=== PATIENT | male | born 1950 | race Caucasian/White ===

== ENCOUNTER 2020-08-13 10:41 | Emergency (ER) | payer MEDICARE, BC ==
[2020-08-13 10:49] VITALS: BP 112/70; PULSE 67; RESP 18; TEMP 97.8
[2020-08-13] MEDS ORDERED: DIPH,PERTUS(ACELL)TETVAC-LF 0.5 ML VIAL IM ONE (11:11)
--- NOTE | 2020-08-13 11:31 | XR ---
EXAMINATION TYPE: XR finger RT DATE OF EXAM: 08/13/2020 COMPARISON: NONE HISTORY: Puncture wound with pain TECHNIQUE: Three views are submitted. FINDINGS: The osseous structures are intact. Hypertrophic arthropathy of the DIP joint. There is a linear densi ty seen along the palmar surface adjacent to the distal phalanx is too small to characterize. As note d on the lateral view.. Soft tissue edema noted. Are preserved and there is no acute fracture or disl ocation. IMPRESSION: 1. Soft tissue edema. There is a vague linear 1 mm density along the ulnar surface of the tip of the phalanx which is indeterminate. Correlate clinically.
--- NOTE | 2020-08-13 11:32 | XR ---
EXAMINATION TYPE: XR foot complete LT DATE OF EXAM: 08/13/2020 COMPARISON: NONE HISTORY: Pain TECHNIQUE: Three views are submitted. FINDINGS: The osseous structures are intact. There is no acute fracture or dislocation. Hypertrophic arthrop athy first MTP. Arthropathy of the DIP joints of the second through fifth digits. Hammertoe deformiti es noted. Calcaneal spurs are seen.. IMPRESSION: 1. No acute fracture or dislocation. If symptoms persist, follow-up exam in 7 to 10 days could be ob tained.
--- NOTE | 2020-08-13 11:57 | ED ---
Skin/Abscess/FB HPI - General Chief complaint: Skin/Abscess/Foreign Body Stated complaint: Extremity Issues Time Seen by Provider: 08/13/20 10:50 Source: patient, family, RN notes reviewed Mode of arrival: wheelchair Limitations: no limitations - History of Present Illness Initial comments: This a 69-year-old male presents emergency Department chief complaint of right hand first and second digit pain, swelling, left foot pain. Patient states she spoke to her finger proximal week ago with be some metal states it was worse at that time. His tetanus is not up-to-date. Patient states that he has become more swollen, painful. No fevers or chills. Patient has no pain past his finger. Patient also states for 5 days ago he stepped on nail through the shoe on his left foot. Patient states it's still painful no redness no fevers chills denies being diabetic. - Related Data Home Medications Medication Instructions Recorded Confirmed Aspirin 81 mg PO DAILY 08/13/20 08/13/20 Atenolol [Tenormin] 100 mg PO DAILY 08/13/20 08/13/20 Atorvastatin [Lipitor] 40 mg PO DAILY 08/13/20 08/13/20 Benazepril HCl 20 mg PO DAILY 08/13/20 08/13/20 amLODIPine [Norvasc] 10 mg PO DAILY 08/13/20 08/13/20 Previous Rx's Medication Instructions Recorded Levofloxacin [Levaquin] 500 mg PO DAILY #10 tab 08/13/20 Allergies Allergy/AdvReac Type Severity Reaction Status Date / Time No Known Allergies Allergy Verified 08/13/20 11:47 Review of Systems ROS Statement: Those systems with pertinent positive or pertinent negative responses have been documented in the HPI. ROS Other: All systems not noted in ROS Statement are negative. Past Medical History Past Medical History: No Reported History History of Any Multi-Drug Resistant Organisms: None Reported Past Surgical History: No Surgical Hx Reported Past Psychological History: No Psychological Hx Reported Smoking Status: Never smoker Past Alcohol Use History: Occasional Past Drug Use History: None Reported General Exam Limitations: no limitations General appearance: alert, in no apparent distress Head exam: Present: atraumatic, normocephalic, normal inspection Respiratory exam: Present: normal lung sounds bilaterally. Absent: respiratory distress, wheezes, rales, rhonchi, stridor Cardiovascular Exam: Present: regular rate, normal rhythm, normal heart sounds. Absent: systolic murmur, diastolic murmur, rubs, gallop, clicks Course Vital Signs 08/13/20 10:42 Temperature 97.8 F Pulse Rate 67 Respiratory 18 Rate Blood Pressure 112/70 O2 Sat by Pulse 98 Oximetry Medical Decision Making - Medical Decision Making Patient has questionable foreign body an x-ray of his finger. X-ray of the foot is unremarkable. Patient we placed on Levaquin with close follow-up with orthopedics. Tetanus was updated Disposition Clinical Impression: Cellulitis of finger, right, Puncture wound of foot Disposition: HOME SELF-CARE Condition: Stable Instructions (If sedation given, give patient instructions): Cellulitis (ED) Additional Instructions: Please return to the Emergency Department if symptoms worsen or any other concerns. Prescriptions: Levofloxacin [Levaquin] 500 mg PO DAILY #10 tab Is patient prescribed a controlled substance at d/c from ED?: No Referrals: Maury Sterling MD [Primary Care Provider] - 1-2 days Noel Garcia MD [STAFF PHYSICIAN] - 1-2 days Time of Disposition: 11:57
[2020-08-13] MEDS ORDERED: cefTRIAXone 1,000 MG VIAL (IM USE) IM STA (12:02)
== END 2020-08-13 12:17 | disposition home or self-care (01) ==
LOC: EC 10:41
DX: S91.332A Puncture wound without foreign body, left foot, initial encounter (principal); L03.011 Cellulitis of right finger; Z79.82 Long term (current) use of aspirin; Z79.899 Other long term (current) drug therapy; W45.0XXA Nail entering through skin, initial encounter
CPT/HCPCS: 73140; 73630; 90715; 99283; 96372; 90471; J0696

== ENCOUNTER → 2020-10-02 | Outpatient (CLI) | payer MEDICARE, BC ==
--- NOTE | 2020-10-06 14:35 | MR ---
EXAMINATION TYPE: MR Prostate wo/w con DATE OF EXAM: 10/02/2020 COMPARISON: None. INDICATION: Increased PSA PSA: 6.4 ng/ml on September 08, 2019 at 8.32 on August 06, 2020. Recent Biopsy and Date: NONE Pathology Report (If Applicable): TECHNIQUE: Examination was performed using a 3T MRI without an endorectal coil. Multiparametric imaging was perf ormed with T2 mutliplanar sequences, axial diffusion weighted imaging and dynamic contrast enhanced i maging, utilizing 7.5 mL intravenous Gadavist gadolinium contrast. FINDINGS: There is no clinically significant cancer identified. PROSTATE VOLUME: 6.1 cm SI x 4.2 cm AP x 5.3 cm LR Vol= 71.1 cc Predicted PSA = 8.53 PSA DENSITY: 0.09 ng/ml/cc Enlarged prostate with transitional zone hypertrophy. Peripheral zone is markedly thinned with areas of indistinct hypointensity particularly mid zone greater right of midline identified. No areas of mi ld to moderate hypointensity and ADC mapping or increased signal Diffusion-weighted imaging identified. Transitional zone hypertrophy and heterogeneity with areas of heterogeneous hypointense signal and ob scured margins throughout the left aspect involving basilar mid and apical segments. No restricted di ffusion is evident. Seminal vesicles are both within normal limits. Mild to moderate distention of bladder with mild wall thickening and mild to borderline moderate trabeculation. Visualized osseous structures are intact. No pelvic fluid collection or adenopathy. Prostate capsule is intact. Small bilateral fat-containing inguinal hernias. IMPRESSION: Enlarged prostate. Somewhat equivocal findings left prostate. Consider sampling given ris ing PSA. Highest Assessment Category: 3 MRI Stage: T0 N0 M0 based on review of pelvic images. False negative rates for MRI range from 5-20% depending on risk profile. Assessment Categories: 1 ? Very low (clinically significant cancer is highly unlikely to be present) 2 ? Low (clinically significant cancer is unlikely to be present) 3 ? Intermediate (the presence of clinically significant cancer is equivocal) 4 ? High (clinically significant cancer is likely to be present) 5 ? Very high (clinically significant cancer is highly likely to be present)
== END | disposition home or self-care (01) ==
LOC: RADMRIMAIN 10:09
PROVIDERS: ATTEND Urology
DX: N40.0 Benign prostatic hyperplasia without lower urinary tract symptoms (principal)
CPT/HCPCS: 72197; A9585

== ENCOUNTER → 2021-05-17 | Outpatient (CLI) | payer MEDICARE, BC | END | disposition home or self-care (01) | LOC: LABWHC1 12:11 | PROVIDERS: ATTEND Urology | DX: C61 Malignant neoplasm of prostate (principal) | CPT/HCPCS: 36415; 84153 ==

== ENCOUNTER → 2021-11-14 | Outpatient (CLI) | payer MEDICARE, BC | END | disposition home or self-care (01) | LOC: LABWHC1 16:13 | PROVIDERS: ATTEND Urology | DX: C61 Malignant neoplasm of prostate (principal) | CPT/HCPCS: 36415; 84153 ==

== ENCOUNTER → 2021-12-23 | Outpatient (CLI) | payer MEDICARE, BC ==
--- NOTE | 2021-12-26 07:21 | MR ---
EXAMINATION TYPE: MR Prostate wo/w con DATE OF EXAM: 12/23/2021 8:41 AM COMPARISON: None. CLINICAL INDICATION:Male, 71 years old with history of C61 prostate ca; TECHNIQUE: Multi-planar, multi-sequence imaging of the pelvis is performed prior to and following the uncomplicated administration of bolus intravenous gadolinium. CONTRAST: 8 Gadavist Interpretive Criteria: PI-RADS v2.1 SERUM PSA: 8.4 on 11/14/2021. 7.9 on 05/17/2021 SURGICAL PATHOLOGY: Prostate malignancy involving the right lateral apex and left lateral base. Aleks 6. FINDINGS: Prostatic dimensions: 5.8 x 5.9 x 4.6. cm. 82.42 (PSA density=0.10 ng/mL/mL) CENTRAL GLAND (Central and Transition Zones/CZ+TZ): Multiple bilateral, heterogenous appearing hypertrophic stromal nodules, without suspicious lesion. M edian lobe hypertrophy with protrusion into the base of the bladder. Subtle areas of intrinsic high T1 signal are seen most pronounced in the right central zone likely sequela of prior hemorrhage/biops y versus prostatitis (PI-RADS 2) PERIPHERAL ZONE (PZ): Bilateral linear, indistinct areas of low ADC, and low T2 signal, No evidence of masslike abnormality , or localized perfusional hypervascularity, to further suggest a focus of clinically significant pro state cancer. There are 2 extruded BPH nodules seen from the central gland to the peripheral zone inc luding on the right and left lateral aspect. (PI-RADS 2) SEMINAL VESICLES (SV): Symmetric and slightly decompressed. PERIPROSTATIC TISSUES: Unremarkable. LYMPH NODES: No enlarged pelvic lymph node. REMAINING PELVIS: Circumferential bladder wall thickening with trabeculations likely secondary to chronic bladder outfl ow obstruction. No abnormal free or organized intrapelvic fluid collection. No pathologic bowel dilation or mural thickening. Right hydrocele partially visualized. OSSEOUS STRUCTURES: No suspicious osseous abnormality. IMPRESSION: 1. No specific features for high-risk prostate cancer. There are numerous circumscribed transition zo ne nodules and low-risk peripheral zone abnormalities (PI-RADS 2). 2. Substantial BPH, estimated gland volume 82 mL. 3. No suspicious osseous lesion. No lymphadenopathy. No evidence of prostate adenocarcinoma involving the periprostatic tissues.
== END | disposition home or self-care (01) ==
LOC: RADMRIMAIN 07:43
PROVIDERS: ATTEND Urology
DX: C61 Malignant neoplasm of prostate (principal); N40.0 Benign prostatic hyperplasia without lower urinary tract symptoms
CPT/HCPCS: 72197; A9585

== ENCOUNTER 2022-03-27 13:17 | Emergency (ER) | payer MEDICARE, BC ==
[2022-03-27 13:24] VITALS: BP 136/77; PULSE 60; RESP 20; TEMP 98.3
--- NOTE | 2022-03-27 15:57 | ED ---
ENT HPI - General Chief complaint: ENT Stated complaint: bloody nose Time Seen by Provider: 03/27/22 15:05 Source: patient Mode of arrival: ambulatory Limitations: no limitations - History of Present Illness Initial comments: Patient is a 71-year-old male presenting with chief complaint of epistaxis. Patient states that the nosebleed started today. It was intermittent for several hours. By the time I obtained history, patient states that the bleeding had subsided for the last hour and a half. Bleeding was coming from the left nostril. Patient denies any injury or trauma. No headache, vision or hearing changes, fever, chills, neck pain or stiffness. Patient has history of nosebleeds, but has not had one in a long time. - Related Data Home Medications Medication Instructions Recorded Confirmed Aspirin 81 mg PO DAILY 08/13/20 08/13/20 Atorvastatin [Lipitor] 40 mg PO DAILY 08/13/20 08/13/20 Benazepril HCl 20 mg PO DAILY 08/13/20 08/13/20 amLODIPine [Norvasc] 10 mg PO DAILY 08/13/20 08/13/20 atenoloL [Tenormin] 100 mg PO DAILY 08/13/20 08/13/20 Previous Rx's Medication Instructions Recorded Levofloxacin [Levaquin] 500 mg PO DAILY #10 tab 08/13/20 Allergies Allergy/AdvReac Type Severity Reaction Status Date / Time No Known Allergies Allergy Verified 03/27/22 13:25 Review of Systems ROS Statement: Those systems with pertinent positive or pertinent negative responses have been documented in the HPI. ROS Other: All systems not noted in ROS Statement are negative. Past Medical History Past Medical History: Hypertension History of Any Multi-Drug Resistant Organisms: None Reported Past Surgical History: No Surgical Hx Reported Past Psychological History: No Psychological Hx Reported Smoking Status: Never smoker Past Alcohol Use History: Occasional Past Drug Use History: None Reported General Exam Limitations: no limitations General appearance: alert, in no apparent distress Head exam: Present: atraumatic, normocephalic, normal inspection Eye exam: Present: normal appearance ENT exam: Present: other (Scabbing of the left nasal mucosa, no active bleeding) Neck exam: Present: normal inspection, full ROM Respiratory exam: Present: normal lung sounds bilaterally. Absent: respiratory distress, wheezes, rales, rhonchi, stridor Cardiovascular Exam: Present: regular rate, normal rhythm, normal heart sounds. Absent: systolic murmur, diastolic murmur, rubs, gallop, clicks Neurological exam: Present: alert, oriented X3, CN II-XII intact Psychiatric exam: Present: normal affect, normal mood Skin exam: Present: warm, dry, intact, normal color. Absent: rash Course Vital Signs 03/27/22 13:23 Temperature 98.3 F Pulse Rate 60 Respiratory 20 Rate Blood Pressure 136/77 O2 Sat by Pulse 99 Oximetry Medical Decision Making - Medical Decision Making Was pt. sent in by a medical professional or institution (, PA, DRIVER LICENSE TECHNICIAN, urgent care, hospital, or long term...) When possible be specific @ -No Did you speak to anyone other than the patient for history (EMS, parent, family, police, friend...)? What history was obtained from this source @ -No Did you review nursing and triage notes (agree or disagree)? Why? @ -I reviewed and agree with nursing and triage notes Were old charts reviewed (outside hosp., previous admission, EMS record, old EKG, old radiological studies, urgent care reports/EKG's, long term records)? Report findings @ -No old charts were reviewed Differential Diagnosis (chest pain, altered mental status, abdominal pain women, abdominal pain men, vaginal bleeding, weakness, fever, dyspnea, syncope, headache, dizziness, GI bleed, back pain, seizure, CVA, palpatations, mental health)? @ -not applicable EKG interpreted by me (3pts min.). @ -As above X-rays interpreted by me (1pt min.). @ -None done CT interpreted by me (1pt min.). @ -None done U/S interpreted by me (1pt. min.). @ -None done What testing was considered but not performed or refused? (CT, X-rays, U/S, labs)? Why? @ -None What meds were considered but not given or refused? Why? @ -None Did you discuss the management of the patient with other professionals (professionals i.e. SAI Reid, DRIVER LICENSE TECHNICIAN, lab, RT, psych nurse, social services specialist, tin recovery worker, teacher, seal delivery vehicle officer, outpatient case manager)? Give summary @ -No Was smoking cessation discussed for >3mins.? @ -No Was critical care preformed (if so, how long)? @ -No Were there social determinants of health that impacted care today? How? (Homelessness, low income, unemployed, alcoholism, drug addiction, transportation, low edu. Level, literacy, decrease access to med. care, halfway, rehab)? @ -No Was there de-escalation of care discussed even if they declined (Discuss DNR or withdrawal of care, Hospice)? DNR status @ -No What co-morbidities impacted this encounter? (DM, HTN, Smoking, COPD, CAD, C ancer, CVA, ARF, Chemo, Hep., AIDS, mental health diagnosis, sleep apnea, morbid obesity)? @ -None Was patient admitted / discharged? Hospital course, mention meds given and route, prescriptions, significant lab abnormalities, going to OR and other pertinent info. @ -Patient is a 71 y/o male presenting with CC of epistaxis. Nosebleed started today, has not been active for the last hour and a half. On examination there is scabbing of the left knee are noted, no active bleeding. Patient is educated on supportive treatment, encouraged to use nasal saline spray and humidifier at home to help prevent nosebleeds. Provided with nasal clamp if needed for home. Blood pressure is within acceptable range. Follow-up with PCP. Report back to ER with any new or worsening symptoms. Discussed return parameters and answered all questions. Patient conveyed verbal understanding and agreed to the plan. I discussed this case in detail with my attending Dr. Okeefe Undiagnosed new problem with uncertain prognosis? @ -No Drug Therapy requiring intensive monitoring for toxicity (Heparin, Nitro, Insulin, Cardizem)? @ -No Were any procedures done? @ -No Diagnosis/symptom? @ -epistaxis Acute, or Chronic, or Acute on Chronic? @ -ACUTE Uncomplicated (without systemic symptoms) or Complicated (systemic symptoms)? @ -uncomplicated Side effects of treatment? @ -No Exacerbation, Progression, or Severe Exacerbation? @ -No Poses a threat to life or bodily function? How? (Chest pain, [place], OR, pneumonia, PE, COPD, DKA, ARF, appy, cholecystitis, CVA, Diverticulitis, Homicidal, Suicidal, threat to staff... and all critical care pts) @ -unlikely Disposition Clinical Impression: Nosebleed Disposition: HOME SELF-CARE Condition: Good Instructions (If sedation given, give patient instructions): Nosebleed (ED) Additional Instructions: Follow-up with PCP. Report back to ER with any new or worsening symptoms. Use nasal saline spray to help keep nasal passages moist. Use nasal clamp as needed to help with nosebleeds. Is patient prescribed a controlled substance at d/c from ED?: No Referrals: Maury Sterling MD [Primary Care Provider] - 1-2 days Time of Disposition: 15:57
== END 2022-03-27 16:06 | disposition home or self-care (01) ==
LOC: EC 13:17
DX: R04.0 Epistaxis (principal); I10 Essential (primary) hypertension; Z79.82 Long term (current) use of aspirin
CPT/HCPCS: 99283

== ENCOUNTER → 2022-12-15 | Outpatient (CLI) | payer MEDICARE, BC | END | disposition home or self-care (01) | LOC: LABWHC1 09:32 | PROVIDERS: ATTEND Urology | DX: C61 Malignant neoplasm of prostate (principal) | CPT/HCPCS: 36415; 84153 ==

== ENCOUNTER 2023-04-26 08:29 | Emergency (ER) | payer MEDICARE, BC ==
[2023-04-26] MEDS: OXYMETAZOLINE 0.05% NASL SPRAY 1 SPRAY BOTTLE NASAL STA (08:52)
[2023-04-26 09:21] LABS: Basophils # (A) 0.1 k/uL (0-0.2); Basophils % (A) 1 %; Eosinophils # (A) 0.2 k/uL (0-0.7); Eosinophils % (A) 3 %; HCT 24.5 % (39.0-53.0); HGB 8.2 gm/dL (13.0-17.5); Lymphocytes # (A) 1.4 k/uL (1.0-4.8); Lymphocytes % (A) 19 %; MCH 29.8 pg (25.0-35.0); MCHC 33.5 g/dL (31.0-37.0); MCV 88.7 fL (80.0-100.0); Mean Platelet Volume 8.4; Monocytes # (A) 0.4 k/uL (0-1.0); Monocytes % (A) 5 %; Neutrophils # (A) 5.4 k/uL (1.3-7.7); Neutrophils % (A) 72 %; Platelet Count 255 k/uL (150-450); RBC 2.76 m/uL (4.30-5.90); RDW 14.4 % (11.5-15.5); WBC 7.5 k/uL (3.8-10.6)
[2023-04-26] MEDS: TRANEXAMIC ACID 1,000 MG/10 ML VIAL MISCELLANE ONE (09:22)
[2023-04-26] MEDS: METOCLOPRAMIDE 5 MG/ML 2 ML VIAL IVP STA (09:25)
[2023-04-26 09:30] LABS: INR 0.9 (<1.2); Prothrombin Time 10.2 sec (10.0-12.5)
[2023-04-26 09:42] LABS: ALT 15 U/L (4-49); AST 21 U/L (17-59); African American GFR (CKD) 32 (>60 ml/min/1.73 sqM); Albumin 3.1 g/dL (3.5-5.0); Alkaline Phosphatase 99 U/L (38-126); Anion Gap 7 mmol/L; Blood Urea Nitrogen 33 mg/dL (9-20); Calcium 8.7 mg/dL (8.4-10.2); Carbon Dioxide 24 mmol/L (22-30); Chloride 111 mmol/L (98-107); Glucose 142 mg/dL (74-99); Non-African American GFR(CKD) 28 (>60 ml/min/1.73 sqM); Sodium 142 mmol/L (137-145); Total Bilirubin 0.4 mg/dL (0.2-1.3); Total Protein 6.1 g/dL (6.3-8.2)
--- NOTE | 2023-04-26 09:50 | ED ---
ENT HPI - General Chief complaint: ENT Stated complaint: Nose bleed, lightheaded Time Seen by Provider: 04/26/23 08:39 Source: patient, RN notes reviewed Mode of arrival: wheelchair Limitations: no limitations - History of Present Illness Initial comments: 72-year-old male presents emergency department chief complaint of left nostril epistaxis. He states he has been having nosebleeds for several days. Patient states that he felt lightheaded when she had to lay down today. He denies any chest pain or shortness of breath. Patient states that he has had some nosebleeds in the past but never to this extent. He does use a humidifier at home he is also been using some [place] saline rinses. Patient states he was on aspirin up to a few days ago in which his PCP told him to stop it. - Related Data Home Medications Medication Instructions Recorded Confirmed Aspirin 81 mg PO DAILY 08/13/20 08/13/20 Atorvastatin [Lipitor] 40 mg PO DAILY 08/13/20 08/13/20 Benazepril HCl 20 mg PO DAILY 08/13/20 08/13/20 amLODIPine [Norvasc] 10 mg PO DAILY 08/13/20 08/13/20 atenoloL [Tenormin] 100 mg PO DAILY 08/13/20 08/13/20 Previous Rx's Medication Instructions Recorded Levofloxacin [Levaquin] 500 mg PO DAILY #10 tab 08/13/20 Allergies Allergy/AdvReac Type Severity Reaction Status Date / Time No Known Allergies Allergy Verified 04/26/23 08:38 Review of Systems ROS Statement: Those systems with pertinent positive or pertinent negative responses have been documented in the HPI. ROS Other: All systems not noted in ROS Statement are negative. Past Medical History Past Medical History: Hypertension History of Any Multi-Drug Resistant Organisms: None Reported Past Surgical History: No Surgical Hx Reported Past Psychological History: No Psychological Hx Reported Smoking Status: Never smoker Past Alcohol Use History: Occasional Past Drug Use History: None Reported General Exam Limitations: no limitations General appearance: alert, in no apparent distress Head exam: Present: atraumatic, normocephalic, normal inspection Eye exam: Present: normal appearance, PERRL, EOMI. Absent: scleral icterus, conjunctival injection, periorbital swelling ENT exam: Present: mucous membranes moist, other (Left nostril active bleeding, no obvious site). Absent: normal exam, normal oropharynx (Blood noted in the posterior pharynx), TM's normal bilaterally Neck exam: Present: normal inspection, full ROM. Absent: tenderness, meningismus, lymphadenopathy Respiratory exam: Present: normal lung sounds bilaterally. Absent: respiratory distress, wheezes, rales, rhonchi, stridor Cardiovascular Exam: Present: regular rate, normal rhythm, normal heart sounds. Absent: systolic murmur, diastolic murmur, rubs, gallop, clicks Course Vital Signs 04/26/23 04/26/23 04/26/23 08:36 10:59 11:04 Temperature 97.4 F L 98.5 F 98.1 F Pulse Rate 60 61 78 Respiratory 16 16 18 Rate Blood Pressure 121/67 117/74 117/74 O2 Sat by Pulse 98 100 98 Oximetry Procedures - Procedures Initial comment: Nasal packing procedure: Left nostril Rhino Rocket was used Rhino Rocket was placed with no complications 2 cc of air were placed in each balloon. Medical Decision Making - Medical Decision Making Was pt. sent in by a medical professional or institution (, PA, [employer], urgent care, hospital, or detention...) When possible be specific @ -No Did you speak to anyone other than the patient for history (EMS, parent, family, police, friend...)? What history was obtained from this source @ -No Did you review nursing and triage notes (agree or disagree)? Why? @ -I reviewed and agree with nursing and triage notes Were old charts reviewed (outside hosp., previous admission, EMS record, old EKG, old radiological studies, urgent care reports/EKG's, detention records)? Report findings @ -No old charts were reviewed Differential Diagnosis (chest pain, altered mental status, abdominal pain women, abdominal pain men, vaginal bleeding, weakness, fever, dyspnea, syncope, headache, dizziness, GI bleed, back pain, seizure, CVA, palpatations, mental health, musculoskeletal)? @ -Epistaxis, nasal fracture, sinusitis EKG interpreted by me (3pts min.). @ -[None X-rays interpreted by me (1pt min.). @ -None done CT interpreted by me (1pt min.). @ -None done U/S interpreted by me (1pt. min.). @ -None done What testing was considered but not performed or refused? (CT, X-rays, U/S, labs)? Why? @ -None What meds were considered but not given or refused? Why? @ -None Did you discuss the management of the patient with other professionals (professionals i.e. , PA, [employer], lab, RT, psych nurse, social work instructor, door fitter, teacher, biological technical officer, case maker)? Give summary @ -No Was smoking cessation discussed for >3mins.? @ -No Was critical care preformed (if so, how long)? @ -No Were there social determinants of health that impacted care today? How? (Homelessness, low income, unemployed, alcoholism, drug addiction, transportation, low edu. Level, literacy, decrease access to med. care, retirement, rehab)? @ -No Was there de-escalation of care discussed even if they declined (Discuss DNR or withdrawal of care, Hospice)? DNR status @ -No What co-morbidities impacted this encounter? (DM, HTN, Smoking, COPD, CAD, Cancer, CVA, ARF, Chemo, Hep., AIDS, mental health diagnosis, sleep apnea, morbid obesity)? @ -None Was patient admitted / discharged? Hospital course, mention meds given and route, prescriptions, significant lab abnormalities, going to OR and other pertinent info. @ -[Discharge patient presented for epistaxis. Patient initially had Afrin spray, TXA with no relief. Nasal packing with Rhino Rocket was performed. Patient tolerated well patient will follow-up with ENT. Return pressure d iscussed. I did receive laboratory studies from PCP patient did have mild anemia from baseline patient states he is not symptomatic currently. He was offered admission patient declined admission he will have recheck of his hemoglobin. Patient has chronic kidney disease in which he has been referred to nephrology Undiagnosed new problem with uncertain prognosis? @ -No Drug Therapy requiring intensive monitoring for toxicity (Heparin, Nitro, Insulin, Cardizem)? @ -No Were any procedures done? @ -No Diagnosis/symptom? @ -Epistaxis Acute, or Chronic, or Acute on Chronic? @ -Acute Uncomplicated (without systemic symptoms) or Complicated (systemic symptoms)? @ -Uncomplicated Side effects of treatment? @ -No Exacerbation, Progression, or Severe Exacerbation? @ -No Poses a threat to life or bodily function? How? (Chest pain, USA, LA, pneumonia, PE, COPD, DKA, ARF, appy, cholecystitis, CVA, Diverticulitis, Homicidal, Suicidal, threat to staff... and all critical care pts) @ -No - Lab Data Result diagrams: 04/26/23 09:07 04/26/23 09:07 Lab Results 04/26/23 04/26/23 04/26/23 Range/Units 09:07 09:07 09:07 WBC 7.5 (3.8-10.6) k/uL RBC 2.76 L (4.30-5.90) m/uL Hgb 8.2 L (13.0-17.5) gm/dL Hct 24.5 L (39.0-53.0) % MCV 88.7 (80.0-100.0) fL MCH 29.8 (25.0-35.0) pg MCHC 33.5 (31.0-37.0) g/dL RDW 14.4 (11.5-15.5) % Plt Count 255 (150-450) k/uL MPV 8.4 Neutrophils % 72 % Lymphocytes % 19 % Monocytes % 5 % Eosinophils % 3 % Basophils % 1 % Neutrophils # 5.4 (1.3-7.7) k/uL Lymphocytes # 1.4 (1.0-4.8) k/uL Monocytes # 0.4 (0-1.0) k/uL Eosinophils # 0.2 (0-0.7) k/uL Basophils # 0.1 (0-0.2) k/uL PT 10.2 (10.0-12.5) sec INR 0.9 (<1.2) APTT 21.0 L (22.0-30.0) sec Sodium 142 (137-145) mmol/L Potassium 4.0 (3.5-5.1) mmol/L Chloride 111 H (98-107) mmol/L Carbon Dioxide 24 (22-30) mmol/L Anion Gap 7 mmol/L BUN 33 H (9-20) mg/dL Creatinine 2.29 H (0.66-1.25) mg/dL Est GFR (CKD-EPI)AfAm 32 (>60 ml/min/1.73 sqM) Est GFR (CKD-EPI)NonAf 28 (>60 ml/min/1.73 sqM) Glucose 142 H (74-99) mg/dL Calcium 8.7 (8.4-10.2) mg/dL Total Bilirubin 0.4 (0.2-1.3) mg/dL AST 21 (17-59) U/L ALT 15 (4-49) U/L Alkaline Phosphatase 99 (38-126) U/L Total Protein 6.1 L (6.3-8.2) g/dL Albumin 3.1 L (3.5-5.0) g/dL Disposition Clinical Impression: Epistaxis, CKD (chronic kidney disease), Anemia Disposition: HOME SELF-CARE Condition: Stable Instructions (If sedation given, give patient instructions): Nosebleed (ED) Additional Instructions: Please return to the Emergency Department if symptoms worsen or any other con cerns. Is patient prescribed a controlled substance at d/c from ED?: No Referrals: Zac Sterling MD [STAFF PHYSICIAN] - 1-2 days Samson Ventura MD [STAFF PHYSICIAN] - 1-2 days Time of Disposition: 10:58
[2023-04-26 11:08] VITALS: BP 117/74; PULSE 78; RESP 18; TEMP 98.1
== END 2023-04-26 11:18 | disposition home or self-care (01) ==
LOC: EC 08:29
DX: D63.1 Anemia in chronic kidney disease (principal); R04.0 Epistaxis; I12.9 Hypertensive chronic kidney disease with stage 1 through stage 4 chronic kidney disease, or unspecified chronic kidney disease; N18.9 Chronic kidney disease, unspecified; Z79.82 Long term (current) use of aspirin; Z79.899 Other long term (current) drug therapy
CPT/HCPCS: 99284; 96374; 30901; 36415; 80053; 85025; 85610; 85730; J2765

== ENCOUNTER → 2023-07-09 | Outpatient (CLI) | payer MEDICARE, BC | END | disposition home or self-care (01) | LOC: LABWHC1 15:56 | PROVIDERS: ATTEND Urology | DX: C61 Malignant neoplasm of prostate (principal) | CPT/HCPCS: 36415; 84153 ==

== ENCOUNTER → 2023-12-18 | Outpatient (CLI) | payer MEDICARE, BC ==
[2023-12-18 18:43] LABS: Basophils # (A) 0.06 X 10*3/uL (0.00-0.10); Basophils % (A) 0.7 %; Eosinophils # (A) 0.34 X 10*3/uL (0.04-0.35); Eosinophils % (A) 3.7 %; HCT 40.6 % (39.6-50.0); HGB 13.7 g/dL (13.0-17.0); Lymphocytes # (A) 2.52 X 10*3/uL (0.90-5.00); Lymphocytes % (A) 27.6 %; MCH 30.8 pg (27.0-32.0); MCHC 33.7 g/dL (32.0-37.0); MCV 91.2 FL (80.0-97.0); Mean Platelet Volume 10.3 FL (9.5-12.2); Monocytes # (A) 1.08 X 10*3/uL (0.20-1.00); Monocytes % (A) 11.8 %; NRBC Per 100 WBC 0 X 10*3/uL (0.00-0.01); Neutrophils # (A) 5.08 X 10*3/uL (1.80-7.70); Neutrophils % (A) 55.5 %; Platelet Count 237 X 10*3/uL (140-440); RBC 4.45 X 10*6/uL (4.40-5.60); RDW 12.9 % (11.5-14.5); WBC 9.14 X 10*3/uL (4.50-10.00)
[2023-12-18 18:54] LABS: BUN/Creat Ratio 16.27 Ratio (12.00-20.00); Blood Urea Nitrogen 35.8 mg/dL (9.0-27.0); Calcium 9.5 mg/dL (8.7-10.3); Carbon Dioxide 25.1 mmol/L (21.6-31.8); Chloride 106 mmol/L (96-109); Glucose 91 mg/dL (70-110); Potassium 4.7 mmol/L (3.5-5.5); Sodium 143 mmol/L (135-145)
[2023-12-18 19:43] LABS: Appearance,Urine Clear (Clear); Bilirubin,Urine Negative (Negative); Blood,Urine Small (Negative); Color,Urine Yellow (Yellow); Ketones,Urine Negative (Negative); Nitrite,Urine Negative (Negative); Specific Gravity,Urine 1.016 (1.001-1.030); Urobilinogen,Urine 0.2 E.U./DL
[2023-12-18 19:54] LABS: Bacteria,Urine None Seen (None Seen)
== END | disposition home or self-care (01) ==
LOC: LABPAT 15:03
PROVIDERS: ATTEND Urology
CPT/HCPCS: 36415; 80048; 81001; 85025; 86850; 86900; 86901; 87086; 93005

== ENCOUNTER 2023-12-28 07:32 | Day surgery (SDC) | payer MEDICARE, BC ==
--- NOTE | 2023-12-25 14:12 | P.HPIHPCON ---
History of Present Illness H&P Date: 12/25/23 Chief Complaint: prostate cancer This is a 73-year-old male with history of Martin 7 prostate cancer, option of radiation therapy versus prostatectomy versus continued surveillance was discussed with him in detail. He agreed to proceed with a robotic radical prostatectomy. Patient also has inguinal hernia and plan to repair an inguinal hernia at the same time as the prostatectomy by Dr. Shane. Discussed with him with prostatectomy the risk of bleeding, infection, urinary incontinence, erectile dysfunction. Discussed also risk of injury to nearby organs which includes but not limited to the rectum, bowel, bladder. Risk of cancer recurrence, potential of need of additional treatments and the need for postoperative surveillance was also discussed. He understood all the risk and agreed to proceed Consent for Procedure: I have explained the operation/procedure to the patient, including the risks, benefits, side effects, alternative therapies (including not receiving the proposed treatment or service), the likelihood of the patient achieving his/her goals, and potential recuperation problems for the procedure/sedation/analgesia, as well as any blood products, if indicated. I also explained to the patient the risks, benefits and side effects of the alternatives, as well as the risks related to not receiving the proposed procedure, care, treatment, or services. Past Medical History Past Medical History: Hypertension History of Any Multi-Drug Resistant Organisms: None Reported Past Surgical History: No Surgical Hx Reported Past Psychological History: No Psychological Hx Reported Smoking Status: Never smoker Past Alcohol Use History: Occasional Past Drug Use History: None Reported Medications and Allergies Home Medications Medication Instructions Recorded Confirmed Type Aspirin 81 mg PO DAILY 08/13/20 08/13/20 History Atorvastatin [Lipitor] 40 mg PO DAILY 08/13/20 08/13/20 History Benazepril HCl 20 mg PO DAILY 08/13/20 08/13/20 History Levofloxacin [Levaquin] 500 mg PO DAILY #10 tab 08/13/20 Rx amLODIPine [Norvasc] 10 mg PO DAILY 08/13/20 08/13/20 History atenoloL [Tenormin] 100 mg PO DAILY 08/13/20 08/13/20 History Allergies Allergy/AdvReac Type Severity Reaction Status Date / Time No Known Allergies Allergy Verified 04/26/23 08:38 Surgical - Exam - General no distress, no pain - Eyes normal ocular movement, no pale - ENT normal pinna, normal nares, normal mucosa - Respiratory normal expansion, normal respiratory effort - Abdomen Abdomen: soft, non tender, no distended Assessment and Plan Assessment: OR for robotic radical prostatectomy
[2023-12-27 10:41] VITALS: BMI 24.7
[~2023-12-28 07:32] MED LIST: HYDROmorphone 0.5 MG/0.5 ML SYRINGE IVP PRN; LIDOCAINE 1% (10MG/ML) FOR IV START INTRADERMA PRN
[2023-12-28] MEDS: IV FLUID CONTINUATION 1,000 ML IV ONE ×4 (08:00)
[2023-12-28] MEDS: MIDAZOLAM 2 MG/2 ML VIAL IV PRN (08:55)
[2023-12-28] MEDS: ONDANSETRON 4 MG/2 ML VIAL IVP ONE (09:17)
[2023-12-28] MEDS: DEXAMETHASONE SOD PHOSPHATE 4 MG/ML 1 ML VIAL IV ONE (09:17)
[2023-12-28] MEDS: ACETAMINOPHEN TAB 500 MG TAB PO PRN (09:17)
[2023-12-28] MEDS: LACTATED RINGERS 1,000 ML IV SCH (09:18)
[2023-12-28] MEDS: HEPARIN SODIUM,PORCINE 5,000 UNIT/ML 1 ML VIAL SQ PRN (09:18)
--- NOTE | 2023-12-28 09:34 | P.GSHP ---
History of Present Illness H&P Date: 12/28/23 Chief Complaint: Left inguinal, umbilical hernia 73-year-old male here today for robotic prostatectomy. Patient found during his preop evaluation to have a umbilical hernia and a left inguinal hernia as well. Plan is to repair these hernias at the time of his surgery today. Past Medical History Past Medical History: Cancer, Hypertension Additional Past Medical History / Comment(s): Cancer of prostate recently diagnosed. Pt denied kidney disease however Dr. Shannon stated pt has chronic kidney disease. History of Any Multi-Drug Resistant Organisms: None Reported Past Surgical History: Orthopedic Surgery Additional Past Surgical History / Comment(s): Fx lt elbow -had surgery. Colonoscopy Past Anesthesia/Blood Transfusion Reactions: No Reported Reaction Additional Past Anesthesia/Blood Transfusion Reaction / Comment(s): No of blood transfusion to date. Smoking Status: Never smoker - Past Family History Father Family Medical History: No Reported History Medications and Allergies Home Medications Medication Instructions Recorded Confirmed Type Aspirin 81 mg PO QAM 08/13/20 12/28/23 History Atorvastatin [Lipitor] 40 mg PO QAM 08/13/20 12/28/23 History Benazepril HCl 20 mg PO QAM 08/13/20 12/28/23 History amLODIPine [Norvasc] 10 mg PO QAM 08/13/20 12/28/23 History atenoloL [Tenormin] 100 mg PO QAM 08/13/20 12/28/23 History Centrum Silver(Unknown Dose) 1 dose PO QAM 12/27/23 12/28/23 History Allergies Allergy/AdvReac Type Severity Reaction Status Date / Time No Known Allergies Allergy Verified 12/28/23 08:00 Surgical - Exam Physical exam: General: Well-developed, well-nourished HEENT: Normocephalic, sclerae nonicteric Abdomen: Nontender, nondistended, small to medium sized reducible umbilical hernia, small left inguinal hernia Extremities: No edema Neuro: Alert and oriented Assessment and Plan (1) Inguinal hernia Narrative/Plan: Will proceed with laparoscopic da Shasha assisted repair left inguinal hernia with mesh, possible bilateral with open repair umbilical hernia with possible mesh during his prostatectomy. Current Visit: Yes Status: Acute Code(s): K40.90 - UNIL INGUINAL HERNIA, W/O OBST OR GANGR, NOT SPCF RECUR SNOMED Code(s): 735574974
[2023-12-28] MEDS ORDERED: PROPOFOL 10 MG/ML 20 ML VIAL IV ONE (09:47)
[2023-12-28] MEDS ORDERED: SODIUM CHLORIDE 0.9% (PF) 10 ML VIAL ONE (09:47)
[2023-12-28] MEDS ORDERED: fentaNYL (PF) 50 MCG/ML 2 ML AMP ONE (09:47)
[2023-12-28] MEDS ORDERED: GLYCOPYRROLATE 0.2 MG/ML 2 ML VIAL ONE (09:47)
[2023-12-28] MEDS ORDERED: KETOROLAC 15 MG/ML 1 ML VIAL ONE (09:47)
[2023-12-28] MEDS ORDERED: LIDOCAINE 1% INJ 10MG/ML (20 ML MDV) ONE (09:47)
[2023-12-28] MEDS ORDERED: MIDAZOLAM 2 MG/2 ML VIAL ONE (09:47)
[2023-12-28] MEDS ORDERED: SUCCINYLCHOLINE CHLORIDE 200 MG/10 ML VIAL IV ONE (09:47)
[2023-12-28] MEDS ORDERED: ROCURONIUM 10 MG/ML (5 ML VIAL) IV ONE (09:47)
[2023-12-28] MEDS ORDERED: HYDROmorphone (PF) 1 MG/ML ONE (09:47)
[2023-12-28] MEDS ORDERED: NEOSTIGMINE 1 MG/ML 10 ML VIAL ONE (09:47)
[2023-12-28] MEDS ORDERED: ePHEDrine 50 MG/ML 1 ML VIAL ONE (09:47)
[2023-12-28] MEDS ORDERED: DEXAMETHASONE SOD PHOSPHATE 4 MG/ML 1 ML VIAL ONE (09:47)
[2023-12-28] MEDS ORDERED: ROPIVACAINE 5 MG/ML 30 ML VIAL ONE (09:47)
[2023-12-28] MEDS: BUPIVACAINE (PF) 0.25% 30 ML VIAL SQ ONE ×2 (10:11→14:48)
[2023-12-28] MEDS: LACTATED RINGERS 1,000 ML IV ONE ×2 (11:14→12:44)
[2023-12-28] MEDS ORDERED: HYDROmorphone 1 MG/ML 1 ML SYRINGE IVP PRN (13:38)
[2023-12-28] MEDS ORDERED: ONDANSETRON 4 MG/2 ML VIAL IVP PRN (13:38)
--- NOTE | 2023-12-28 13:45 | P.OP ---
Date of Procedure: 12/28/23 Preoperative Diagnosis: Prostate cancer Postoperative Diagnosis: Same Procedure(s) Performed: Robotic assisted laparoscopic radical prostatectomy Implants: None Anesthesia: YO Surgeon: Chucho Shannon Estimated Blood Loss (ml): 200 Pathology: other (Prostate, bilateral seminal vesicle) Condition: stable Disposition: PACU Indications for Procedure: This is a 73-year-old male with history of Aleks 7 prostate cancer, option of radiation therapy versus prostatectomy versus continued surveillance was discussed with him in detail. He agreed to proceed with a robotic radical prostatectomy. Patient also has inguinal hernia and plan to repair an inguinal hernia at the same time as the prostatectomy by Dr. Shane. Discussed with him with prostatectomy the risk of bleeding, infection, urinary incontinence, erectile dysfunction. Discussed also risk of injury to nearby organs which includes but not limited to the rectum, bowel, bladder. Risk of cancer recurrence, potential of need of additional treatments and the need for postoperative surveillance was also discussed. He understood all the risk and agreed to proceed Description of Procedure: After preoperative antibiotics were started, the patient was taken to the operating room. Anesthesia was induced and the patient was placed in a supine position, with adequate padding of the pressure points, shoulders, back, legs and arms. He was then prepped and draped in the standard fashion. A critical pause was performed using two patient identifiers. A 16F win catheter was placed to gravity drainage. A pneumo-peritoneum was created with placement of a Veress needle to 20 mm Hg without complication, and a 8 Fr trocar was placed above the umbillicus. Under direct vision a 8mm robotic ports was placed lateral to each rectus slightly below the camera port. The left iliac fossa 8mm port was placed. The right assistant broker right iliac fossa 12mm port and right paramedian 5mm portwere placed. After the patient was placed in the trendelenberg position, the robot was then docked to the 8mm robotic ports and then each robotic arm and tower was checked in relation to the patient's legs and hands to avoid inadvertent compression. The peritoneal cavity was inspected. At this point the peritoneum and the inguinal hernia was dissected by Dr. Weber, please see his op note for that portion of the case. After completing his dissection at this point, dissection was carried further down to the pubic bone, fat around the prostate was excised. At this point I opened the endopelvic fascia on both sides. The prostate was quite enlarged and hypervascular. Cautery was used to dissected the bladder away from the prostate. After the anterior bladder neck was incised and the bladder entered the the posterior bladder neck was exposed and the ureteral orifces identified. The posterior bladder neck was then incised and dissected away from the prostate. The vas and the seminal vesicles were now exposed and dissected to their insertions into the prostate and were not spared. The posterior layer of the Denonvillier's fascia was incised to enter michelle the plane between prostate and perirectal fat. Each lateral pedicle was controlled with vessel sealer's, complete nerve preservation was performed on the right, partial nerve preservation was performed on the left. The puboprostatic ligament was incised where it inserted into the apex of the prostate and a plane between urethra and dorsal venous complex developed to expose the anterior urethral surface. The anterior wall of the urethra was transected with the cut setting a few millimeters distal to the apex of the prostate. The dorsal vein was ligated using 3-0 V lock The urethrovesical anastomosis was performed . the posterior denovillers was reapproximated using 3-0 V lock. A 9 and 9inch 3-0 V-Lock suture was used to anastomose the urethra and bladder, starting at the 6:00 posterior position. Mucosa was secured in every stitch, to ensure a mucosa to mucosa anastomosis. The stitch was regularly cinched and the anastomosis tightened. Care was taken to not violate the ureteral orifices. The Win catheter was advanced, the bladder filled, and the anastomosis was tested, as described above. Anastomsis was watertight at [address] point [address] Fuller completed his portion of the hernia, please see his op note for that portion of the case.
[2023-12-28] MEDS ORDERED: ACETAMINOPHEN TAB 325 MG TAB PO PRN (14:53)
[2023-12-28] MEDS ORDERED: HYDROcodone/APAP 5-325MG 1 EACH TAB PO PRN (14:53)
--- NOTE | 2023-12-28 14:59 | P.OP ---
Date of Procedure: 12/28/23 Procedure(s) Performed: PREOPERATIVE DIAGNOSIS: Umbilical hernia, left inguinal hernia POSTOPERATIVE DIAGNOSIS: Umbilical hernia, bilateral inguinal hernia PROCEDURE: Laparoscopic da Shasha assisted repair bilateral inguinal hernia with mesh, open umbilical hernia repair SURGEON: Dr. Shane ANESTHESIA: General OPERATIVE PROCEDURE DETAILS: Patient taken to the operating room by urology. Trocars were placed by urology. At that time I took over control of the robot and made the peritoneal incision transversely superior to the bladder. Dissection through the peritoneum and preperitoneal space took place centrally and again laterally. The patient had a moderate sized left indirect inguinal hernia containing a loop of the transverse colon. This was a sliding hernia. This was fully dissected out. Upon her dissection on the right-hand side a small indirect inguinal hernia and a small direct hernia midline was also noted. At that time urology took over the prostatectomy portion of the procedure. Once they were finished 2 portions of 15 cm mesh ProGrip was placed 1 on each side. This was sutured to the Erick's ligament coming across the midline from right to left with a running absorbable 3 OV lock suture. Mesh was covering all potential spaces nicely. The peritoneum was then reapproximated using 2 separate 2-0 absorbable V-Loc suture. The prostate was already in a bag at this point. The patient's initial camera incision was present 4 cm superior to the umbilicus. The incision was lengthened inferiorly. I dissected around the umbilical hernia sac. The hernia sac was then excised. The defect in the fascia measured approximately 2 cm in diameter. This had to be lengthened slightly laterally on either side. The bag was brought out through the site and the specimen was sent to pathology. I then reapproximated the fascia using [id number] 0 Ethibond sutures. No mesh was used at the umbilicus. Again size of the defect was 2 cm x 1 cm. I did close the midline 8 mm trocar site where the camera was present 4 cm to the umbilicus with a [id number] 0 Ethibond stitch as well. All of the trocars had been removed at this point. The umbilical dermis was sutured down to the fascia using a [id number] 2-0 Vicryl stitch. Subcutaneous tissues at the umbilicus closed using 3-0 Vicryl sutures. Skin at all locations using 4-0 Monocryl sutures. Skin glue was then applied and a sterile dressing at the umbilicus. Prostatectomy portion will be dictated separately. HERNIA CHARACTERISTICS: Length: 1 cm Width: 2 cm Type: Reducible umbilical TYPE OF MESH USED: Ventralex bilateral inguinal hernia sites LOCATION OF MESH: Preperitoneal FIXATION: 3-0 absorbable V-Loc PREOPERATIVE DISCUSSION ON SMOKING CESSASTION: Yes PREOPERATIVE DISCUSSION ON MORBID OBESITY: Yes PREOPERATIVE DISCUSSION ON APPROPRIATE USE OF NARCOTIC USE: Yes PREOPERATIVE EDUCATION: Multi Modal, Smoking Cessation and Weight Loss with BMI over 35. DISPOSITION: Stable to recovery room
[2023-12-28] MEDS ORDERED: HYDROmorphone 2 MG/ML 1 ML SYRINGE IVP PRN (15:30)
[2023-12-28] MEDS: HEPARIN SODIUM,PORCINE 5,000 UNIT/ML 1 ML VIAL SQ SCH (17:17)
[2023-12-28] MEDS: KETOROLAC 15 MG/ML 1 ML VIAL IVP SCH (17:17)
[2023-12-28] MEDS: D5-0.45% NACL WITH KCL 20MEQ/L 1,000 ML IV SCH (21:31)
[2023-12-29 07:34] VITALS: RESP 18
[2023-12-29] MEDS: atenoloL 50 MG TAB PO SCH (08:32)
[2023-12-29] MEDS: lisinopriL 20 MG TAB PO SCH (08:32)
[2023-12-29] MEDS: ATORVASTATIN 40 MG TAB PO SCH (08:32)
[2023-12-29] MEDS: amLODIPine 10 MG TAB PO SCH (08:32)
--- NOTE | 2023-12-29 10:33 | P.PN ---
Subjective Progress Note Date: 12/29/23 Principal diagnosis: POD #1, s/p RALP with repair of inguinal and umbilical hernias. The patient is feeling well. He reports minimal discomfort. He has not yet ambulated. He tolerated clear liquid diet. He denies nausea, chest pain, and dyspnea. Objective - Vital Signs Vital signs: Vital Signs Temp 98.4 F 12/29/23 07:13 Pulse 86 12/29/23 07:13 Resp 18 12/29/23 07:13 BP 128/67 12/29/23 07:13 Pulse Ox 98 12/29/23 07:13 FiO2 Intake & Output 12/28/23 12/29/23 12/29/23 18:59 06:59 18:59 Intake Total 3850 1500 Output Total 450 1300 Balance 3400 200 Weight 75.4 kg Intake: IV 3850 Intake, IV Titration 1500 Amount D5-0.45% NaCl with KCl 1500 20Meq/l 1,000 ml @ 125 mls/hr IV .[facility] Rx#: [id number] Output: Urine 250 1300 Estimated Blood Loss 200 Other: Voiding Method Indwelling Catheter - Constitutional General appearance: Present: average body habitus, cooperative, no acute distress - Gastrointestinal Gastrointestinal Comment(s): Soft, non-distended. Incisions clean, dry, and intact. - Psychiatric Psychiatric: Present: A&O x's 3 Assessment and Plan (1) Malignant neoplasm of prostate Current Visit: Yes Status: Acute Code(s): C61 - MALIGNANT NEOPLASM OF PROSTATE SNOMED Code(s): 347134423 Plan: Ambulate. Advance diet. Anticipate discharge home later today.
[2023-12-29 15:55] VITALS: BP 123/64; PULSE 68; TEMP 98
--- NOTE | 2023-12-30 19:36 | P.ANPRN ---
Procedure Note - Anesthesia - Nerve Block Performed Bilateral Rectus Abdominis Single Time Out Performed: Yes Date of Procedure: 12/28/23 Procedure Start Time: 08:55 Procedure Stop Time: 09:00 Location of Patient: PreOp Indication: Acute Post-Operative Pain, Requested by Surgeon Sedation Type: Sedate with meaningful contact maintained Preparation: Sterile Prep Position: Supine Needle Types: Pajunk Needle Gauge: 21 Ultrasound used to visualize needle placement: Yes Ultrasound used to observe medication spread: Yes Blood Aspirated: No Pain Paresthesia on Injection Noted: No Resistance on Injection: Normal Image Stored and Saved: Yes Events: Uneventful and Well Tolerated (Ropivacaine 0.5% 20 cc plus dexamethasone 4 mg given bilaterally)
--- NOTE | 2023-12-30 19:38 | P.ANPRN ---
Procedure Note - Anesthesia - Nerve Block Performed Bilateral Erector Spinae Single Time Out Performed: Yes Date of Procedure: 12/28/23 Procedure Start Time: Procedure Stop Time: Location of Patient: PreOp Indication: Acute Post-Operative Pain, Requested by Surgeon Sedation Type: Sedate with meaningful contact maintained Preparation: Sterile Prep Position: Prone Needle Types: Pajunk Needle Gauge: 21 Ultrasound used to visualize needle placement: Yes Ultrasound used to observe medication spread: Yes Blood Aspirated: No Pain Paresthesia on Injection Noted: No Resistance on Injection: Normal Image Stored and Saved: Yes Events: Uneventful and Well Tolerated (Ropivacaine 0.5% 15 cc normal saline 10 cc plus dexamethasone 4 mg given bilaterally at L1)
== END 2023-12-29 16:28 | disposition home or self-care (01) ==
LOC: OR 07:32 → 4SSUR 14:51 → OR 12-29 16:28
PROVIDERS: ATTEND Urology
DX: C61 Malignant neoplasm of prostate (principal); K42.9 Umbilical hernia without obstruction or gangrene; K40.20 Bilateral inguinal hernia, without obstruction or gangrene, not specified as recurrent; I12.9 Hypertensive chronic kidney disease with stage 1 through stage 4 chronic kidney disease, or unspecified chronic kidney disease; N18.9 Chronic kidney disease, unspecified; Z79.899 Other long term (current) drug therapy; Z79.82 Long term (current) use of aspirin
CPT/HCPCS: 49591; 49650; 55866; S2900; 64488; 64999; 86850; 86900; 86901; 88309; 88342; 88344